=== PATIENT | female | born 1955 | race Caucasian/White ===

== ENCOUNTER → 2021-12-03 | Outpatient (CLI) | payer MEDICARE, OTHER ==
[~2021-12-03] VITALS: Ht 152.4 cm; Wt 72.7 kg
[2021-12-03] MEDS: LIDOCAINE 1% INJ 50 ML (XYLOCAINE) VIAL IJ ONE (13:28)
--- NOTE | 2021-12-03 15:52 | Diagnostic Imaging Report ---
INDICATION: Right breast calcifications. Patient presents for stereotactic biopsy. The patient was brought to the mammographic suite and placed in a chair in the sitting upright position. The right breast was positioned lateral medial. The cluster of microcalcifications in the central right breast was stereotactically targeted. All images were viewed on a dedicated workstation. The lateral right breast was prepped and draped in the usual sterile fashion. A small amount of 1% lidocaine was utilized for local anesthesia. The 8-gauge vacuum-assisted needle was advanced into the right breast from a lateral medial approach and placed with its tip per stereotactic coordinates. A total of four core samples were obtained with the vacuum-assisted device. A specimen radiograph was obtained demonstrating calcifications within all four samples but most numerous within sample labeled #3. The marker clip was then deployed. The needle was removed, and hemostasis was obtained. 2-D CC and ML mammography was performed demonstrating a clip in the upper central right breast adjacent to the calcifications. There has been reduction in the number of calcifications in the right breast, status post biopsy. Patient tolerated the procedure well and left the department in stable condition. IMPRESSION: Successful stereotactic biopsy of right breast calcifications utilizing the vacuum-assisted device. Pathology results are currently pending. Dictated by: Dictated on workstation # [id number]
== END ==
LOC: RAD 13:15
DX: R92.8 Other abnormal and inconclusive findings on diagnostic imaging of breast (principal); R92.1 Mammographic calcification found on diagnostic imaging of breast
CPT/HCPCS: 19081; A4648